=== PATIENT | female | born 1950 | race Caucasian/White ===

== ENCOUNTER 2021-06-17 09:44 | Outpatient (CLI) | payer MEDICARE | END 2021-06-17 09:45 | disposition home or self-care (01) | LOC: BICULT 09:44 | PROVIDERS: ATTEND Student in an Organized Health Care Education/Training Program | DX: Z12.31 Encounter for screening mammogram for malignant neoplasm of breast (principal); Z13.820 Encounter for screening for osteoporosis; M79.89 Other specified soft tissue disorders; M85.851 Other specified disorders of bone density and structure, right thigh; M85.852 Other specified disorders of bone density and structure, left thigh; Z80.3 Family history of malignant neoplasm of breast; Z78.0 Asymptomatic menopausal state | CPT/HCPCS: 76999; 77063; 77067; 77080 ==